=== PATIENT | female | born 1995 | race Caucasian/White ===

== ENCOUNTER 2021-05-04 09:04 | Emergency (ER) | payer OTHER, SELFPAY ==
[2021-05-04 09:09] VITALS: BP 133/73; PULSE 90; RESP 14; TEMP 36.1; O2SAT 99; BMI 30.7
--- NOTE | 2021-05-04 09:11 | DI.RAD.S_ITS ---
PROCEDURE: XR ANKLE LT MIN 3V INDICATIONS: rolled ankle TECHNIQUE: 3 views of the ankle were acquired. COMPARISON: None. FINDINGS: Bones: No acute fractures or dislocations. Ankle mortise is normally aligned. No suspicious bony lesions. Soft tissues: Soft tissue edema is seen over the lateral malleolus. IMPRESSION: No acute osseous abnormality. Soft tissue edema over the lateral malleolus. If clinical suspicion and/or symptoms persist, additional imaging with repeat plain films, or advanced imaging (e.g. CT, MRI) may be helpful for further assessment. Dictated by: Severino Francisco M.D. on 05/04/2021 at 9:29 Approved by: Severino Francisco M.D. on 05/04/2021 at 9:30
--- NOTE | 2021-05-04 09:21 | ED.LOWEXIN ---
HPI - Extremity Injury (Lower) General Chief Complaint: Extremity Injury, Lower Stated Complaint: Rolled her ankle Time Seen by Provider: 05/04/21 09:11 Source: patient Mode of arrival: Ambulatory Limitations: no limitations History of Present Illness HPI Narrative: 26-year-old female daily smoker presents with a friend and a chief complaint of a left ankle injury suffered last night. She was walking on unsteady surface and rolled her left ankle and now has pain with ambulation. She states it is about as uncomfortable as last night and worse with ambulation but a little bit more swollen, hence her decision for evaluation. She denies any numbness, tingling or weakness. She denies any mahoney, knee or hip pain. She is otherwise well and free of complaint Related Data Allergies Allergy/AdvReac Type Severity Reaction Status Date / Time No Known Drug Allergies Allergy Verified 05/04/21 09:11 Review of Systems Review of Systems Narrative: GENERAL: Denies chills, fatigue, malaise, fever, sweats. HEENT: Denies sinus pain, ear pain, sore throat, difficulty swallowing, dizziness. RESPIRATORY: Denies dyspnea, cough, wheezing, hemoptysis, sputum. CARDIOVASCULAR: Denies chest pain, palpitations, orthopnea, edema, GASTROINTESTINAL: Denies nausea, vomiting, abdominal pain, diarrhea, constipation, melena. : Denies dysuria, frequency, incontinence, hematuria, urinary retention. MUSCULOSKELETAL: See HPI SKIN: Denies rash, skin lesions, or other NEUROLOGIC: Denies weakness, headache, numbness, change in speech, confusion, seizures, incoordination. PSYCHIATRIC: No concerning psychosocial issues. 12 point review of systems is negative except for those stated above Patient History Social History Smoking Status: Current every day smoker Smoking Status: Current every day smoker alcohol intake frequency: holidays/special occasions only Substance Use Type: does not use Exam Narrative Exam Narrative: GEN: AOx3 and in mild distress EYES: Pupils are equal, round, and reactive to light and accommodation. Extraoccular muscles are intact bilaterally. There is no subconjunctival hemorrhage or exudate. CHEST: Lungs are clear to auscultation bilaterally and free of wheezes, rales, or rhonchi. Heart rate is regular rhythm, there are no murmurs, clicks, rubs, or gallops. There is no chest wall tenderness. ABD: Abdomen is soft and nontender. There is no guarding or rebound. Bowel sounds are normal in all 4 quadrants. There is no mass or organomegaly. EXT: Full but painful range of motion of left ankle with mild to moderate swelling over the lateral malleolus, closed, isolated and neurovascularly intact. No pain on palpation of knee, including proximal fibula SKIN: Warm, pink, and dry. No erythema or rash Initial Vital Signs Initial Vital Signs: Vital Signs Temperature 97.0 F L 05/04/21 09:09 Pulse Rate 90 05/04/21 09:09 Respiratory Rate 14 05/04/21 09:09 Blood Pressure 133/73 05/04/21 09:09 Pulse Oximetry 99 05/04/21 09:09 Course Orders Ordered: ED Orders 05/04/21 09:11 XR ankle LT min 3V Stat Vital Signs Vital signs: Vital Signs - 8 hr 05/04/21 09:09 Temperature 97.0 F L Pulse Rate 90 Respiratory Rate 14 Blood Pressure 133/73 Pulse Oximetry 99 MDM - Extremity Injury (Lower) Imaging Data Extremity x-ray #1: Radiologist's Impression: [address] [address] XRay Report Signed Patient: Jorge Villalpando MR#: [id number] : 1995 Acct:[id number] Age/Sex: 26 / F Date of Service: 05/04/21 Loc: ED Accession Number: [id number] ?? Procedure: XR ankle LT min 3V Ordering Provider: Trae Escudero D.O. PROCEDURE:? XR ANKLE LT MIN 3V ? INDICATIONS:? rolled ankle ? TECHNIQUE:? 3 views of the ankle were acquired.? ? COMPARISON:? None. ? FINDINGS:? ? Bones:? No acute fractures or dislocations.? Ankle mortise is normally aligned.? No suspicious bony lesions.? ? Soft tissues:? Soft tissue edema is seen over the lateral malleolus. ? ? IMPRESSION:? No acute osseous abnormality.? Soft tissue edema over the lateral malleolus. ?If clinical suspicion and/or symptoms persist, additional imaging with repeat plain films, or advanced imaging (e.g. CT, MRI) may be helpful for further assessment. ? ? ? Dictated by: Severino Francisco M.D. on 05/04/2021 at 9:29 ? ? Approved by: Severino Francisco M.D. on 05/04/2021 at 9:30 ? Discharge Plan Departure Patient Disposition: Home Clinical Impression: Ankle sprain and strain Instructions: Ankle Sprain Activity Restrictions/Additional Instructions: *You have been diagnosed with [left ankle sprain, no evidence of dislocation or fracture. X-ray has been read by radiology and there are no significant findings *What to do: *Please continue to take your regular medications as directed. [ ] New medication prescriptions sent to your pharmacy: [ ] [ ] New medication written as a paper prescription [x ] No new medications given *Please follow up with your primary care provider in 2-3 days, call for an appointment. Let them know you were seen in the Emergency Department and that we ask that you be seen in follow up. We will electronically transmit a record of today's note if your PCP is in our system *If you do not have a primary care provider please contact the [facility] Resource line at [phone]. They will ask some questions about your medical history and help get you set up with a doctor in the community. *Return to Emergency Department if you should have any new, worsening or concerning symptoms, such as [fever greater than 101 F, shaking chills, worsening pain, persistent vomiting or other bothersome symptoms]
== END 2021-05-04 09:55 | disposition home or self-care (01) ==
PROVIDERS: Emergency Provider Emergency Medicine
DX: S93.402A Sprain of unspecified ligament of left ankle, initial encounter (principal); S96.912A Strain of unspecified muscle and tendon at ankle and foot level, left foot, initial encounter; X50.1XXA Overexertion from prolonged static or awkward postures, initial encounter
CPT/HCPCS: 73610; 99281; 99283